=== PATIENT | female | born 1985 | race Two or more races ===

== ENCOUNTER 2016-06-14 23:16 | Emergency (ER) | payer BC ==
[~2016-06-14] VITALS: Ht 167.6 cm; Wt 65.8 kg
[2016-06-14 23:33] VITALS: BP 136/94
[2016-06-14] MEDS ORDERED: FLUORESCEIN SODIUM OPHTH 1 EA STRIP ONE (23:41)
[2016-06-14] MEDS ORDERED: TETRACAINE HCL/PF 0.5% UD 2 ML BOTTLE ONE (23:41)
== END 2016-06-15 00:23 | disposition home or self-care (01) ==
LOC: ER 23:19
DX: H01.003 Unspecified blepharitis right eye, unspecified eyelid (principal)
CPT/HCPCS: 99283; A4606; Z7610